=== PATIENT | female | born 2000 | race Two or more races ===

== ENCOUNTER 2020-02-21 11:00 | Inpatient (IN) | payer OTHER ==
[~2020-02-21] VITALS: Ht 160 cm; Wt 77.1 kg
[2020-02-29] MEDS ORDERED: PRENATAL TABLE1 EAC1 PO (20:04)
== END 2020-03-03 12:37 | disposition home or self-care (01) | DRG 807 ==
LOC: OB/GYN 02-29 19:45 → LDR 02-29 19:45 → OB/GYN 03-01 02:23
PROVIDERS: ADMIT Specialist; ATTEND Specialist
PROC: 10E0XZZ Delivery of Products of Conception, External Approach (ICD-10-PCS; principal; 2020-03-01)
PROC: 0UQMXZZ Repair Vulva, External Approach (ICD-10-PCS; 2020-03-01)
PROC: 0W8NXZZ Division of Female Perineum, External Approach (ICD-10-PCS; 2020-03-01)
PROC: 4A1HXFZ Monitoring of Products of Conception, Cardiac Rhythm, External Approach (ICD-10-PCS; 2020-03-01)
DX: O71.82 Other specified trauma to perineum and vulva (principal); Z37.0 Single live birth; Z3A.39 39 weeks gestation of pregnancy; Z20.828 Contact with and (suspected) exposure to other viral communicable diseases